=== PATIENT | female | born 1990 | race Caucasian/White ===

== ENCOUNTER 2017-12-15 14:55 | Outpatient (CLI) | payer OTHER, SELFPAY ==
[2017-12-15 15:04] VITALS: BMI 26.9
[2017-12-15] MEDS: Betamethasone/Betamethasone 30 MG/5 ML Vial 12 MG IM (15:12)
--- NOTE | 2017-12-17 13:06 | OB.TRI.NOTE ---
History of Present Illness Date of Service: 12/15/17 Was patient seen by the physician?: No Reason For Visit: CELESTONE SHOT History of Present Illness: Twin IUP with impending twin twin transfusion. Seeing MFM Here for celestone injection. To f/u with MFM on 12/16/17 for next celestone and for f/u sono. Likely to deliver early. Home Medications Medication Instructions Recorded Vits [Prenatabs FA ] 1 tab PO DAILY 12/15/17 Allergies No Known Allergies Allergy (Verified 07/22/17 02:38) Impression/Plan Twin IUP. Impending twin twin transfusion. Celestone given today. To MFM 12/16/17 for next Celestone injeciton and f/u ultrasound Anticipate delivery 2/2 TTTS.
== END 2017-12-15 15:20 | disposition home or self-care (01) ==
LOC: WPOUT 14:59 → WP 15:00
PROVIDERS: Visit Provider Obstetrics & Gynecology
DX: O30.009 Twin pregnancy, unspecified number of placenta and unspecified number of amniotic sacs, unspecified trimester (principal); Z3A.00 Weeks of gestation of pregnancy not specified
CPT/HCPCS: 96372; 99218; G0378; J0702

== ENCOUNTER → 2018-02-16 14:19 | Outpatient (CLI) | payer OTHER, SELFPAY ==
[2018-02-16 15:57] LABS: Group B Strep DNA By PCR Negative (Negative); Internal Control PASS; Probe Check PASS; Specimen Processing Control PASS
== END ==
DX: Z36.9 Encounter for antenatal screening, unspecified (principal)
CPT/HCPCS: 87081; 87653

== ENCOUNTER → 2020-03-14 15:39 | Outpatient (CLI) | payer OTHER, SELFPAY ==
[2020-03-14 17:16] LABS: Glucose 81 mg/dL (74-106)
== END ==
PROVIDERS: Visit Provider Obstetrics & Gynecology
DX: N76.1 Subacute and chronic vaginitis (principal); Z13.1 Encounter for screening for diabetes mellitus; Z12.4 Encounter for screening for malignant neoplasm of cervix; Z11.3 Encounter for screening for infections with a predominantly sexual mode of transmission
CPT/HCPCS: 36415; 82947; 83036

== ENCOUNTER → 2020-11-30 | Outpatient (CLI) | payer OTHER, SELFPAY | END | disposition home or self-care (01) | LOC: LABSPEC 14:51 | PROVIDERS: Visit Provider Obstetrics & Gynecology | DX: N39.0 Urinary tract infection, site not specified (principal) | CPT/HCPCS: 87086; 87088 ==